=== PATIENT | male | born 1990 | race Caucasian/White ===

== ENCOUNTER 2023-10-11 01:06 | Emergency (ER) | payer OTHER ==
[~2023-10-11] VITALS: Ht 180.3 cm; Wt 84.0 kg
[2023-10-11 02:03] VITALS: BP 132/73; PULSE 98; RESP 16; TEMP 98.6; O2SAT 95
[2023-10-11] MEDS ORDERED: AUG875T PO (02:27)
[2023-10-11] MEDS: cefTRIAXone SOD 1,000 MG VL IM ONE (02:38)
== END 2023-10-11 02:44 | disposition home or self-care (01) ==
LOC: ER 01:06
DX: K04.7 Periapical abscess without sinus (principal); F15.10 Other stimulant abuse, uncomplicated; F19.10 Other psychoactive substance abuse, uncomplicated; Z88.1 Allergy status to other antibiotic agents
CPT/HCPCS: 96372; 99283; J0696